=== PATIENT | female | born 1955 | race Caucasian/White ===

== ENCOUNTER → 2017-09-04 | Outpatient (CLI) | payer BC, OTHER ==
--- NOTE | 2017-09-04 15:08 | ECHO ---
[email or web address] [address] [address] Main: [phone] Fax: Transthoracic Echocardiogram Name: JOSE SILVA MR#: [id number] Study Date: 09/04/2017 Study Time: 01:36 PM Date of : 1955 Age: 61 year(s) Height: ( ) Weight: ( ) BSA: Gender: Female Examination: Echo Indication: WEST/SOB, LBBB, systolic murmur/clearance for parathyroidectomy Image Quality: Contrast: Requested by: George Welsh BP: / Heart Rate: Rhythm: Indication: WEST/SOB, LBBB, systolic murmur/clearance for parathyroidectomy Procedure Staff Experience Design Director: Ayala Morales RDCS Reading Physician: Chris Beltre MD Requesting Provider: Conclusions: Normal size left ventricle. No LV hypertrophy. Normal global systolic LV function. EF is 62 %. No regional wall motion abnormality. Normal diastolic LV function. Normal size right ventricle. The left atrium is mildly to moderately dilated. Mild mitral valve regurgitation is present. Chordal ANDER present. . LVOT obstruction visualized. 35mmHG at rest/95 mmHG with valsalva.. Trivial tricuspid valve regurgitation. Pulmonary valve not well visualized. No Previous Measurements: Chambers Valvular Assessment AV/MV Valvular Assessment TV/PV Normal Normal Normal Name Value Range Name Value Range Name Value Range Ao Alessandra (MM): 2.8 cm (2.2 cm-3.7 AV meanP mmHg ( - ) cm) MV E Vmax: 0.62 m/s ( - ) IVSd (2D): 1.1 cm (0.6 cm-1.1 MV A Vmax: 1.15 m/s ( - ) cm) MV E/A: 0.54 ( - ) LVDd (2D): 4.0 cm (3.9 cm-5.3 cm) LVDs (2D): 2.8 cm (2.1 cm-4 cm) LVPWd (2D): 0.9 cm ( - ) LVEF (MOD4): 62 % (>=55 %) Patient: JOSE SILVA Study Date: 09/04/2017 Page 1 of 2 01:36 PM Continued Measurements: Chambers Valvular Assessment AV/MV Name Value Name Value LADs: 4.1 cm MV E' Septal: 0.04 m/s LADs Lon.3 cm MV E/E' Septal: 13.90 LA Area: 20.6 cm2 MV E/E' Lateral: 10.00 Additional Vessels Name Value Ao Ascendin.1 cm Findings: Left Ventricle: Normal size left ventricle. No LV hypertrophy. Normal global systolic LV function. EF is 62 %. No regional wall motion abnormality. Normal diastolic LV function. Right Ventricle: Normal size right ventricle. Left Atrium: The left atrium is mildly to moderately dilated. Right Atrium: The right atrium is normal in size. Mitral Valve: The mitral valve is normal in appearance and function. Mild mitral valve regurgitation is present. Chordal ANDER present. . Aortic Valve: The aortic valve is normal in appearance and function. LVOT obstruction visualized. 35mmHG at rest/95 mmHG with valsalva.. Tricuspid Valve: The tricuspid valve is normal in appearance and function. Trivial tricuspid valve regurgitation. Pulmonic Valve: Pulmonary valve not well visualized. Aorta: The aorta is normal. Pericardium: No pericardial effusion. (No Signature Object) Patient: JOSE SILVA Study Date: 09/04/2017 Page 2 of 2 01:36 PM [id number]
== END ==
LOC: FCP 13:12
PROVIDERS: ATTEND Internal Medicine Cardiovascular Disease
DX: I44.7 Left bundle-branch block, unspecified (principal); R94.39 Abnormal result of other cardiovascular function study; R01.1 Cardiac murmur, unspecified; E11.9 Type 2 diabetes mellitus without complications

== ENCOUNTER → 2017-10-11 | Day surgery (SDC) | payer OTHER ==
[~2017-10-11] MED LIST: ASPIRIN EC 325 MG TAB PO ONE; ATROPINE SULFATE 1 MG/10 ML SYR IVP PRN; DIAZEPAM 5 MG TAB ONE; DIAZEPAM 5 MG TAB PO ONE; FAMOTIDINE 20 MG TAB ONE; FAMOTIDINE 20 MG TAB PO ONE; HEPARIN 10,000 UNIT/10 ML MDV (1,000 UNIT/ML) ONE; HYDROCODONE/APAP 5/325 TAB PO PRN; IOPAMIDOL (ISOVUE-370) 150 ML BTL IV ONE; LIDOCAINE 1% 300 MG/30 ML SDV ONE; MIDAZOLAM 2 MG/2 ML VIAL ONE; NS 1,000 ML IV ONE; ONDANSETRON 4 MG/2 ML VIAL IVP PRN; VERAPAMIL 5 MG/2 ML VIAL ONE; diphenhydrAMINE 25 MG CAP PO ONE; fentaNYL 100 MCG/2 ML INJ ONE
--- NOTE | 2017-10-11 08:33 | CPEKG ---
Heart Rate: 66 RR Interval: 909 P-R Interval: 168 QRSD Interval: 122 QT Interval: 452 QTC Interval: 474 P [place]: 29 QRS [place]: 1 T Wave [place]: 91 EKG Severity - ABNORMAL ECG - EKG Impression: SINUS RHYTHM EKG Impression: LEFT BUNDLE BRANCH BLOCK Electronically Signed By: Abner Ward 11-Oct-2017 13:22:53
[2017-10-11 08:36] LABS: PLATELET COUNT 212 10^3/uL (150-400)
[2017-10-11 08:44] LABS: INR 1.06 (0.83-1.16)
--- NOTE | 2017-10-11 10:48 | PDHPUP ---
History & Physical Update H&P update statement: This history and physical update is based on an assessment of the patient which was completed after admission or registration (within 24 hours), but prior to the surgery/procedure. H&P update: H&P reviewed & patient examined, no change in patient's condition since H&P completed
--- NOTE | 2017-10-11 10:49 | PDPROPOC ---
Sedation Plan of Care Sedation Plan of Care: vital signs stable, mental status noted, patient educated of risks, benefits, alternatives ASA Classification: ASA 1 Planned drugs: fentanyl, midazolam Mallampati Score: Class 2 Mallampati Reference Image: Patient passed 3-3-2 rule?: Yes
--- NOTE | 2017-10-11 11:39 | PDDXCAT ---
Diagnostic Cath Note - . Date: 10/11/17 Inspector Process: Harinder Indication: other (Dyspnea on exertion, risk factors for CAD, abnormal stress test, and pre-op CV evaluation.) - Procedure Access: right wrist Procedure: left heart catheterization, coronary angiography, left ventriculogram - Materials Left Heart Cath size: 5F Left Heart Cath materials: pigtail, other (Cordis Special) - Findings-Left Heart Catheterization LM: Angiographically normal. LAD: Angiographically normal. LCX: Dominant; angiographically normal. RCA: Nondominant; angiographically normal. LVEF: 60% Wall motion: Normal. Complications: None Estimated blood loss: <50ml Closure method: TR Band Assessment: 1) Angiographically normal coronary arteries. 2) Normal LV systolic function. 3) No LV intracavitary or aortic valve gradient.
== END | disposition home or self-care (01) ==
LOC: FCATH 07:16
PROVIDERS: ATTEND Internal Medicine Interventional Cardiology
PROC: B2111ZZ Fluoroscopy of Multiple Coronary Arteries using Low Osmolar Contrast (ICD-10-PCS; principal; 2017-10-11)
PROC: B2151ZZ Fluoroscopy of Left Heart using Low Osmolar Contrast (ICD-10-PCS; principal; 2017-10-11)
PROC: 4A023N7 Measurement of Cardiac Sampling and Pressure, Left Heart, Percutaneous Approach (ICD-10-PCS; principal; 2017-10-11)
DX: R06.00 Dyspnea, unspecified (principal); Z79.82 Long term (current) use of aspirin
CPT/HCPCS: 93005; 93458; C1769; J1644; J2250; J3010; Q9967